=== PATIENT | male | born 2000 | race Caucasian/White ===

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

== ENCOUNTER 2018-05-31 23:02 | Emergency (ER) | payer OTHER ==
[~2018-05-31] VITALS: Ht 172.7 cm; Wt 65.9 kg
[~2018-05-31 23:02] MED LIST: AUGM875T28 PO; IBUP200C25 PO; TYLE500T78 PO; VALT1TAB PO
[2018-05-31 23:03] VITALS: BP 145/80
== END 2018-06-01 02:20 | disposition left against medical advice (07) ==
LOC: M ED 23:02
DX: Z53.29 Procedure and treatment not carried out because of patient's decision for other reasons (principal)

== ENCOUNTER 2018-10-05 13:30 | Emergency (ER) | payer OTHER ==
[~2018-10-05] VITALS: Ht 170.2 cm; Wt 71.8 kg
[2018-10-05] MEDS ORDERED: NS 1,000 ML IV ONE (14:00)
--- NOTE | 2018-10-05 14:39 | REP ---
CT ABDOMEN AND PELVIS WITHOUT IV CONTRAST: CT abdomen and pelvis performed without IV contrast. Sagittal and coronal reconstruction images are performed. Visualized lung bases are clear. The liver, spleen, adrenals, pancreas, and kidneys appear grossly unremarkable. However, there is a 2 mm calcification in the region of the right ureterovesical junction which may represent a ureteral calculus. There is no hydroureteronephrosis. No gross bladder calculus is seen. Abdominal aorta is normal in caliber with no aneurysm. I see no adenopathy. There is no free air. Tiny amount of free fluid is seen in the pelvis. The appendix is dilated with wall thickening and surrounding streaky inflammatory change consistent with appendicitis. No other bowel wall thickening is seen. IMPRESSION: Findings compatible with appendicitis. Tiny amount of free fluid in the pelvis. 2 mm calcification in the region of the right ureterovesical junction may represent a distal ureteral calculus. No evidence of hydronephrosis. Electronically Signed by Moe Drake MD 10/06/2018 12:20 P
[2018-10-05 14:47] LABS: BASO % 0.9 % (0.0-1.0); EOS # 0.1 10^3/uL (0.0-0.50); EOS % 2.2 % (0.0-3.0); HEMATOCRIT 39.5 % (42.0-52.0); HEMOGLOBIN 13.9 g/dl (13.5-17.5); LYMPH # 1.4 10^3/uL (1.5-6.5); LYMPH % 29.5 % (24.0-44.0); MEAN CORPUSCULAR HEMOGLOBIN 30.3 pg (27.0-33.0); MEAN CORPUSCULAR HGB CONC 35.2 g/dl (32.0-36.5); MEAN CORPUSCULAR VOLUME 86.2 fl (80.0-96.0); MONO # 0.5 10^3/uL (0.0-0.8); NEUTROPHILS # 2.6 10^3/uL (1.8-7.7); NEUTROPHILS % 56.2 % (36.0-66.0); PLATELET COUNT, AUTOMATED 255 10^3/uL (150-450); RED BLOOD COUNT 4.58 10^6/uL (4.30-6.10); WHITE BLOOD COUNT 4.7 10^3/uL (4.0-10.0)
[2018-10-05 14:48] LABS: BLOOD UREA NITROGEN 11 MG/DL (7-18); CALCIUM LEVEL 9.3 MG/DL (8.5-10.1); CARBON DIOXIDE LEVEL 29 MEQ/L (21-32); CHLORIDE LEVEL 105 MEQ/L (98-107); CREATININE FOR GFR 0.88 MG/DL (0.70-1.30); GLUCOSE, FASTING 99 MG/DL (70-100); POTASSIUM SERUM 3.9 MEQ/L (3.5-5.1); SODIUM LEVEL 138 MEQ/L (136-145)
[2018-10-05] MEDS ORDERED: AUGM875T28 PO (15:11)
[2018-10-05] MEDS ORDERED: PIPERACILLIN/TAZOBACTAM SOD 3.375 GM in D5W MINI-BAG PLUS 50 ML IV ONE (15:15)
[2018-10-05] MEDS ORDERED: FLOM0.4C39 PO (15:55)
[2018-10-05 16:04] VITALS: BP 135/74
== END 2018-10-05 16:30 | disposition home or self-care (01) ==
LOC: M ED 13:30
DX: K35.80 Unspecified acute appendicitis (principal)
CPT/HCPCS: 74176; 80048; 81001; 85025; 96361; 96365; 99284; J2543

== ENCOUNTER → 2018-11-09 | Outpatient (REF) | payer OTHER ==
[~2018-11-09] MED LIST changes: +FLOM0.4C39 PO
== END ==
LOC: M LAB LCGH 13:56
DX: K35.80 Unspecified acute appendicitis (principal); R16.0 Hepatomegaly, not elsewhere classified

== ENCOUNTER 2020-05-29 12:22 | Emergency (ER) | payer OTHER ==
[~2020-05-29] VITALS: Ht 170.2 cm; Wt 77.8 kg
[2020-05-29 12:22] VITALS: BP 139/78
[2020-05-29] MEDS ORDERED: AUGM875T28 PO (12:54)
[2020-05-29] MEDS ORDERED: IBUP80TA PO (12:54)
== END 2020-05-29 13:03 | disposition home or self-care (01) ==
LOC: M ED 12:22
DX: K02.9 Dental caries, unspecified (principal); K04.7 Periapical abscess without sinus

== ENCOUNTER 2020-05-30 23:07 | Emergency (ER) | payer OTHER ==
[~2020-05-30] VITALS: Ht 170.2 cm; Wt 78.2 kg
[~2020-05-30 23:07] MED LIST changes: +IBUP80TA PO
[2020-05-31] MEDS ORDERED: CLINDAMYCIN 900 MG in IV 1 EA IV ONE (00:30)
[2020-05-31] MEDS ORDERED: NS 1,000 ML IV ONE (00:30)
[2020-05-31 00:34] LABS: BASO % 0.4 % (0.0-1.0); EOS # 0.1 10^3/uL (0.0-0.5); HEMOGLOBIN 13.9 g/dl (13.5-17.5); LYMPH # 1.5 10^3/uL (1.5-5.0); LYMPH % 21.1 % (24.0-44.0); MEAN CORPUSCULAR HEMOGLOBIN 29.9 pg (27.0-33.0); MEAN CORPUSCULAR HGB CONC 34.8 g/dl (32.0-36.5); MONO # 1.1 10^3/uL (0.0-0.8); NEUTROPHILS # 4.4 10^3/uL (1.5-8.5); NEUTROPHILS % 61.1 % (36.0-66.0); PLATELET COUNT, AUTOMATED 243 10^3/uL (150-450); RED BLOOD COUNT 4.65 10^6/uL (4.30-6.10); WHITE BLOOD COUNT 7.1 10^3/uL (4.0-10.0)
[2020-05-31 00:58] LABS: BLOOD UREA NITROGEN 11 MG/DL (7-18); C REACTIVE PROTEIN QUANTITATIV 1.61 MG/DL (0.00-0.30); CALCIUM LEVEL 9.5 MG/DL (8.5-10.1); CARBON DIOXIDE LEVEL 30 MEQ/L (21-32); CHLORIDE LEVEL 105 MEQ/L (98-107); CREATININE FOR GFR 0.98 MG/DL (0.70-1.30); GLOMERULAR FILTRATION RATE > 60.0 (>60); GLUCOSE, FASTING 102 MG/DL (70-100); POTASSIUM SERUM 4.1 MEQ/L (3.5-5.1); SODIUM LEVEL 138 MEQ/L (136-145)
[2020-05-31] MEDS ORDERED: CLEO300C2 PO (01:16)
[2020-05-31 01:48] VITALS: BP 137/74
== END 2020-05-31 01:49 | disposition home or self-care (01) ==
LOC: M ED 23:07
DX: R21 Rash and other nonspecific skin eruption (principal); T36.0X5A Adverse effect of penicillins, initial encounter; K08.89 Other specified disorders of teeth and supporting structures; Z88.1 Allergy status to other antibiotic agents

== ENCOUNTER 2020-11-06 09:27 | Emergency (ER) | payer OTHER ==
[~2020-11-06] VITALS: Ht 170.2 cm; Wt 79.5 kg
[~2020-11-06 09:27] MED LIST changes: +CLEO300C2 PO
--- NOTE | 2020-11-06 10:46 | REP ---
INDICATION: r groin pain following heavy lifting, hx of hernia COMPARISON: None. TECHNIQUE: Grayscale ultrasound examination using linear high-frequency transducer. FINDINGS: Ultrasound examination of the right groin appears normal and without evidence for hernia, visible abnormal fluid collection, mass or adenopathy. Ultrasound examination of the left groin demonstrates a small non reducible fat containing hernia at the internal ring with a peritoneal defect measuring between 7 and 10 mm on Valsalva. IMPRESSION: 1. No right groin hernia or obvious pathology identified by ultrasound. 2. Small non reducible fat containing left inguinal hernia. <Electronically signed by Tae Dennis > 11/06/20 [id number]
[2020-11-06 11:27] VITALS: BP 160/84
== END 2020-11-06 11:30 | disposition home or self-care (01) ==
LOC: M ED 09:27
DX: K40.90 Unilateral inguinal hernia, without obstruction or gangrene, not specified as recurrent (principal)